=== PATIENT | male | born 1995 | race Two or more races ===

== ENCOUNTER 2023-06-12 10:23 | Emergency (ER) | payer OTHER ==
[2023-06-12 10:27] VITALS: BP 134/79; PULSE 66; RESP 18; TEMP 97.3; BMI 35.2
[2023-06-12] MEDS ORDERED: ACETAMINOPHEN 500 MG TABLET (FP) ONE (11:32)
[2023-06-12] MEDS ORDERED: KETOROLAC TROMETHAMINE 30 MG/1 ML VIAL ONE (11:32)
[2023-06-12] MEDS: ACETAMINOPHEN 500 MG TABLET (FP) PO ONE (11:36)
[2023-06-12] MEDS: KETOROLAC TROMETHAMINE 30 MG/1 ML VIAL IM ONE (11:36)
[2023-06-12] MEDS ORDERED: KETOROLAC TROMETHAMINE 60 MG/2 ML VIAL ONE (11:55)
== END 2023-06-12 14:01 | disposition home or self-care (01) ==
LOC: JERFT 10:23
PROC: 3E0233Z Introduction of Anti-inflammatory into Muscle, Percutaneous Approach (ICD-10-PCS; principal; 2023-06-12)
DX: M79.661 Pain in right lower leg (principal)
CPT/HCPCS: 73590-TC-RT-FY; 99284-25